=== PATIENT | female | born 1965 | race Caucasian/White ===

== ENCOUNTER 2020-05-06 21:02 | Observation (INO) | payer OTHER, SELFPAY ==
[~2020-05-06] VITALS: Ht 160 cm; Wt 82.3 kg
[2020-05-06 21:05] VITALS: BP_SYST 138
[2020-05-06] MEDS ORDERED: MECLIZINE HCL 25 MG TABLET (ANITVERT) PO ONE (22:15)
[2020-05-06] MEDS ORDERED: NACL 0.9% 1,000 ML IV ONE (22:15)
[2020-05-06 22:45] LABS: BASOPHILS % (AUTO) 0.3 % (0.0-2.0); EOSINOPHILS # (AUTO) 0.1 K/uL (0.0-0.4); EOSINOPHILS % (AUTO) 0.8 % (0.0-4.0); HEMATOCRIT 43.9 % (36-48); HEMOGLOBIN 15.5 g/dL (12.0-16.0); LYMPHOCYTES % (AUTO) 33.7 % (20.5-51.5); MEAN CORPUSCULAR HEMOGLOBIN 31 pg (27-31); MEAN CORPUSCULAR HGB CONC 35 % (32-36); MEAN CORPUSCULAR VOLUME 87 fL (79.0-98.0); MONOCYTES # (AUTO) 0.5 K/uL (0.0-1.0); MONOCYTES % (AUTO) 5.1 % (1.7-9.3); NEUTROPHILS # (AUTO) 5.4 K/uL (1.8-7.7); NEUTROPHILS % (AUTO) 60.1 % (40.0-70.0); PLATELET COUNT (AUTO) 266 K/uL (130-430); RED BLOOD CELL COUNT(AUTO) 5.06 MIL/uL (4.2-6.2); RED CELL DISTRIBUTION WIDTH 13.4 % (9.0-15.0)
[2020-05-06 22:55] LABS: CALCIUM 9.9 mg/dL (8.4-11.0); CREATININE 0.87 mg/dL (0.55-1.30); POTASSIUM 3.5 mmol/L (3.5-5.1)
[2020-05-06 23:09] LABS: ALBUMIN 4.4 g/dL (3.4-4.8); FREE T4 (FREE THYROXINE) 0.9 ng/dl (0.8-1.5); THYROID STIMULATING HORMONE 1.27 uIu/mL (0.36-3.74); TOTAL BILIRUBIN 0.8 mg/dL (0.0-1.0)
[2020-05-06] MEDS ORDERED: HYDROcodone/ACETAMIN 5-325 MG TAB (NORCO/ VICODIN) PO PRN (23:45)
[2020-05-06] MEDS ORDERED: ALBUTEROL SULFATE 0.083% 2.5 MG/3 ML VIAL.NEB INH PRN (23:45)
[2020-05-06] MEDS ORDERED: NALOXONE HCL 0.4 MG/ML AMP (NARCAN) IVP PRN ×2 (23:45)
[2020-05-06] MEDS ORDERED: MORPHINE 2 MG/ML INJ. SYRINGE IVP PRN (23:45)
[2020-05-06] MEDS ORDERED: ONDANSETRON HCL 4 MG/2 ML VIAL IVP PRN (23:45)
[2020-05-07] MEDS ORDERED: MECLIZINE HCL 25 MG TABLET (ANITVERT) PO PRN ×2
[2020-05-07 00:04] VITALS: BP_SYST 135
[2020-05-07 00:25] VITALS: BP_SYST 133
[2020-05-07] MEDS: NACL 0.9% 1,000 ML IV SCH ×2 (01:03→13:25)
[2020-05-07 07:22] LABS: ALANINE AMINOTRANSFERASE 39 U/L (12-78); ALBUMIN 3.7 g/dL (3.4-4.8); ANION GAP 9 (5-15); ASPARTATE AMINOTRANSFERASE 20 U/L (10-37); CALCIUM 8.5 mg/dL (8.4-11.0); CHLORIDE 104 mmol/L (98-107); CREATININE 0.69 mg/dL (0.55-1.30); GLUCOSE 102 mg/dL (70-99); POTASSIUM 3.6 mmol/L (3.5-5.1); SODIUM SERUM 139 mmol/L (136-145); TOTAL BILIRUBIN 0.6 mg/dL (0.0-1.0); UREA NITROGEN, BLOOD 12 mg/dL (8-21)
[2020-05-07 07:40] LABS: BASOPHILS % (AUTO) 0.3 % (0.0-2.0); EOSINOPHILS # (AUTO) 0.1 K/uL (0.0-0.4); EOSINOPHILS % (AUTO) 1.9 % (0.0-4.0); HEMATOCRIT 40.6 % (36-48); HEMOGLOBIN 14.2 g/dL (12.0-16.0); LYMPHOCYTES # (AUTO) 3.2 K/uL (1.0-5.5); LYMPHOCYTES % (AUTO) 40.7 % (20.5-51.5); MEAN CORPUSCULAR HEMOGLOBIN 31 pg (27-31); MEAN CORPUSCULAR HGB CONC 35 % (32-36); MEAN CORPUSCULAR VOLUME 88 fL (79.0-98.0); MONOCYTES # (AUTO) 0.6 K/uL (0.0-1.0); MONOCYTES % (AUTO) 7.9 % (1.7-9.3); NEUTROPHILS # (AUTO) 3.9 K/uL (1.8-7.7); NEUTROPHILS % (AUTO) 49.2 % (40.0-70.0); PLATELET COUNT (AUTO) 255 K/uL (130-430); RED BLOOD CELL COUNT(AUTO) 4.64 MIL/uL (4.2-6.2); RED CELL DISTRIBUTION WIDTH 12.9 % (9.0-15.0)
[2020-05-07 08:13] VITALS: BP_SYST 131
[2020-05-07 08:49] LABS: GFR AFRICAN AMERICAN 114 mL/min (>90)
[2020-05-07] MEDS ORDERED: ASPIRIN 81 MG TABLET(ECOTRIN) PO SCH (09:00)
[2020-05-07 09:13] LABS: CHOLESTEROL 244 mg/dL (<200); HDL CHOLESTEROL 49 mg/dL (>55); LDL CHOLESTEROL 158 mg/dL (<100); TRIGLYCERIDES 268 mg/dL (30-150)
[2020-05-07] MEDS ORDERED: AMLO2.5T2 PO (10:25)
[2020-05-07 12:10] VITALS: BP_SYST 134
[2020-05-07] MEDS ORDERED: LORazepam 2 MG/ML VIAL IVP ONE (15:30)
[2020-05-07] MEDS ORDERED: GADOBENATE DIMEGLUMINE 529 MG/ML, 15 ML VIAL IV ONE (15:38)
[2020-05-07 16:30] VITALS: BP_SYST 131
[2020-05-07] MEDS ORDERED: MECL-174 PO (16:56)
[2020-05-07 18:04] VITALS: BP_SYST 122
== END 2020-05-07 21:00 | disposition home or self-care (01) ==
LOC: SED 21:02 → STU 23:23 → INTOOBSV 23:23 → STU 23:51
PROVIDERS: ADMIT Internal Medicine Hospice and Palliative Medicine; ATTEND Internal Medicine Hospice and Palliative Medicine
DX: H81.10 Benign paroxysmal vertigo, unspecified ear (principal); Z20.828 Contact with and (suspected) exposure to other viral communicable diseases; I10 Essential (primary) hypertension; H05.20 Unspecified exophthalmos; Z79.899 Other long term (current) drug therapy
CPT/HCPCS: 36415 ×2; 70450; 70553; 80053 ×2; 80061; 84439; 84443; 84484; 85025 ×2; 87426; 93306; 96360; 96361; 97162; 99285; A9577; G0378; J7030 ×2; J8597; 76376

== ENCOUNTER 2021-01-07 12:43 | Emergency (ER) | payer OTHER, SELFPAY ==
[~2021-01-07] VITALS: Ht 160 cm; Wt 76.7 kg
[2021-01-07 12:43] VITALS: BP_SYST 136
[~2021-01-07 12:43] MED LIST: AMLO2.5T2 PO; MECL-225 PO
[2021-01-07] MEDS ORDERED: HYDROcodone/ACETAMIN 5-325 MG TAB (NORCO/ VICODIN) PO ONE (13:00)
[2021-01-07] MEDS ORDERED: TRAM50TA2 PO (15:55)
[2021-01-07] MEDS ORDERED: METH-634 PO (15:55)
[2021-01-07 16:03] VITALS: BP_SYST 141
== END 2021-01-07 16:03 | disposition home or self-care (01) ==
LOC: SED 12:43
DX: S30.0XXA Contusion of lower back and pelvis, initial encounter (principal); S09.90XA Unspecified injury of head, initial encounter; I10 Essential (primary) hypertension; W11.XXXA Fall on and from ladder, initial encounter; Y93.89 Activity, other specified; Y92.89 Other specified places as the place of occurrence of the external cause; Y99.8 Other external cause status
CPT/HCPCS: 70450-TC; 72110; 72125-TC; 72170-TC; 73502; 76376; 99285

== ENCOUNTER 2024-04-16 03:09 | Inpatient (IN) | payer OTHER, MEDICAID ==
[~2024-04-16] VITALS: Ht 160 cm; Wt 77.1 kg
[~2024-04-16 03:09] MED LIST changes: +METH-634 PO; +TRAM50TA2 PO
[2024-04-16 03:20] VITALS: BP_SYST 145; PULSE 92; RESP 20; TEMP 98; O2SAT 98
[2024-04-16] MEDS: NACL 0.9% 1,000 ML IV ONE (04:33)
[2024-04-16 05:01] LABS: BASOPHILS % (AUTO) 0.1 % (0.0-2.0); EOSINOPHILS # (AUTO) 0.1 K/uL (0.0-0.4); EOSINOPHILS % (AUTO) 1.1 % (0.0-4.0); HEMATOCRIT 40.9 % (36-48); LYMPHOCYTES # (AUTO) 2.9 K/uL (1.0-5.5); LYMPHOCYTES % (AUTO) 26.9 % (20.5-51.5); MEAN CORPUSCULAR HEMOGLOBIN 30 pg (27-31); MEAN CORPUSCULAR HGB CONC 34 % (32-36); MEAN CORPUSCULAR VOLUME 86 fL (79.0-98.0); MONOCYTES # (AUTO) 0.9 K/uL (0.0-1.0); MONOCYTES % (AUTO) 7.9 % (1.7-9.3); NEUTROPHILS # (AUTO) 6.9 K/uL (1.8-7.7); PLATELET COUNT (AUTO) 274 K/uL (130-430); RED BLOOD CELL COUNT(AUTO) 4.74 MIL/uL (4.2-6.2); RED CELL DISTRIBUTION WIDTH 13.6 % (9.0-15.0); WHITE BLOOD COUNT (AUTO) 10.9 K/uL (4.8-10.8)
[2024-04-16 05:16] LABS: ALANINE AMINOTRANSFERASE 28 U/L (12-78); ALBUMIN 4.2 g/dL (3.4-4.8); ANION GAP 13 (5-15); ASPARTATE AMINOTRANSFERASE 15 U/L (10-37); CALCIUM 9.3 mg/dL (8.4-11.0); CARBON DIOXIDE 25 mmol/L (23-29); CHLORIDE 102 mmol/L (98-107); CREATININE 0.89 mg/dL (0.55-1.30); GFR AFRICAN AMERICAN 83 mL/min (>90); GFR NON AFRICAN-AMERICAN 69 mL/min (>90); GLUCOSE 109 mg/dL (74-106); POTASSIUM 3.5 mmol/L (3.5-5.1); SODIUM SERUM 140 mmol/L (136-145); TOTAL BILIRUBIN 0.7 mg/dL (0.0-1.0); UREA NITROGEN, BLOOD 16 mg/dL (8-21)
[2024-04-16 05:18] LABS: BILIRUBIN,DIRECT 0.1 mg/dL (0.0-0.3); CREATINE KINASE, TOTAL 96 U/L (26-192)
[2024-04-16] MEDS ORDERED: ONDANSETRON HCL 4 MG/2 ML VIAL ONE (05:56)
[2024-04-16] MEDS: ONDANSETRON HCL 4 MG/2 ML VIAL IVP ONE (05:56)
[2024-04-16] MEDS ORDERED: MORPHINE 4 MG INJ. 4 MG/ML VIAL ONE (05:57)
[2024-04-16] MEDS: MORPHINE 4 MG INJ. 4 MG/ML VIAL IVP ONE (05:58)
[2024-04-16] MEDS ORDERED: SEMA0.258 SUBCUT (08:23)
[2024-04-16 08:45] VITALS: BP_SYST 131; PULSE 74; RESP 18; TEMP 97.8; O2SAT 99
[2024-04-16] MEDS ORDERED: ONDANSETRON HCL 4 MG/2 ML VIAL IVP PRN (11:15)
[2024-04-16] MEDS ORDERED: traMADol HCL HCL 50 MG TABLET (ULTRAM) PO PRN (11:15)
[2024-04-16] MEDS ORDERED: LORazepam 2 MG/ML VIAL IVP PRN (11:15)
[2024-04-16] MEDS ORDERED: INSULIN REGULAR, HUMAN 100 UNITS/ML, 3 ML VIAL (humuLIN R) SUBCUT PRN (11:15)
[2024-04-16] MEDS ORDERED: ACETAMINOPHEN 325 MG TABLET PO PRN ×2 (11:15→12:00)
[2024-04-16 11:23] VITALS: BP_SYST 131; PULSE 74; RESP 16; TEMP 99
[2024-04-16 12:00] VITALS: BP_SYST 133; PULSE 77; RESP 18; TEMP 97.5; O2SAT 99
[2024-04-16] MEDS: amLODIPine BESYLATE 5 MG TABLET PO ONE (13:43)
[2024-04-16 16:00] VITALS: BP_SYST 133; PULSE 82; RESP 18; TEMP 98.8; O2SAT 99
[2024-04-16] MEDS: traMADol HCL HCL 50 MG TABLET (ULTRAM) PO PRN (16:36)
[2024-04-16] MEDS: NORMAL SALINE 5 ML DISP.SYRIN IVF SCH (16:37)
[2024-04-16 19:55] VITALS: BP_SYST 118; PULSE 79; RESP 20; TEMP 97.2; O2SAT 97
[2024-04-16] MEDS ORDERED: methocarbamoL 500 MG TABLET PO PRN (21:00)
[2024-04-17 00:16] VITALS: BP_SYST 134; PULSE 85; RESP 18; TEMP 98.1; O2SAT 97
[2024-04-17 07:45] LABS: BASOPHILS % (AUTO) 0.2 % (0.0-2.0); EOSINOPHILS # (AUTO) 0.1 K/uL (0.0-0.4); EOSINOPHILS % (AUTO) 2.1 % (0.0-4.0); HEMATOCRIT 39.5 % (36-48); HEMOGLOBIN 13.7 g/dL (12.0-16.0); LYMPHOCYTES # (AUTO) 3.2 K/uL (1.0-5.5); LYMPHOCYTES % (AUTO) 47.7 % (20.5-51.5); MEAN CORPUSCULAR HEMOGLOBIN 30 pg (27-31); MEAN CORPUSCULAR HGB CONC 35 % (32-36); MEAN CORPUSCULAR VOLUME 87 fL (79.0-98.0); MONOCYTES # (AUTO) 0.4 K/uL (0.0-1.0); MONOCYTES % (AUTO) 6.5 % (1.7-9.3); NEUTROPHILS # (AUTO) 2.9 K/uL (1.8-7.7); NEUTROPHILS % (AUTO) 43.5 % (40.0-70.0); PLATELET COUNT (AUTO) 259 K/uL (130-430); RED BLOOD CELL COUNT(AUTO) 4.56 MIL/uL (4.2-6.2); RED CELL DISTRIBUTION WIDTH 13.5 % (9.0-15.0); WHITE BLOOD COUNT (AUTO) 6.7 K/uL (4.8-10.8)
[2024-04-17 07:57] LABS: ANION GAP 9 (5-15); CARBON DIOXIDE 29 mmol/L (23-29); CHLORIDE 102 mmol/L (98-107); CREATININE 0.86 mg/dL (0.55-1.30); GFR AFRICAN AMERICAN 87 mL/min (>90); GLUCOSE 97 mg/dL (74-106); POTASSIUM 4.2 mmol/L (3.5-5.1); SODIUM SERUM 140 mmol/L (136-145); UREA NITROGEN, BLOOD 12 mg/dL (8-21)
[2024-04-17 08:01] VITALS: BP_SYST 97; PULSE 17; RESP 17; TEMP 97.2; O2SAT 94
[2024-04-17 08:03] LABS: GFR NON AFRICAN-AMERICAN 72 mL/min (>90)
[2024-04-17 10:05] VITALS: O2SAT 95
[2024-04-17] MEDS: amLODIPine BESYLATE 5 MG TABLET PO SCH (10:17)
[2024-04-17 13:05] VITALS: BP_SYST 107; PULSE 86; RESP 18; TEMP 97.6; O2SAT 95
== END 2024-04-17 13:45 | disposition home health service (06) | DRG 313 ==
LOC: SED 03:09 → STU 06:45
PROVIDERS: ADMIT Preventive Medicine Preventive Medicine/Occupational Environmental Medicine; ATTEND Preventive Medicine Preventive Medicine/Occupational Environmental Medicine
DX: R07.89 Other chest pain (principal); G89.4 Chronic pain syndrome; D72.829 Elevated white blood cell count, unspecified; R73.9 Hyperglycemia, unspecified; E66.9 Obesity, unspecified; I11.9 Hypertensive heart disease without heart failure; Z79.899 Other long term (current) drug therapy; Z68.30 Body mass index [BMI] 30.0-30.9, adult
CPT/HCPCS: 36415; 71045; 71275; 80048; 80076; 82550; 82948; 84484; 85025; 85379; 93005; 93306; 99285; G0378; J1815; J2270; J2405; J7030; Q9967